=== PATIENT | male | born 1985 | race Caucasian/White ===

== ENCOUNTER 2021-11-15 06:00 | Day surgery (SDC) | payer OTHER ==
[~2021-11-15] VITALS: Ht 175.3 cm; Wt 74.8 kg
[2021-11-15] MEDS: MEPERIDINE 100 MG INJ. 100 MG/ML VIAL ONE ×2 (08:21→08:24)
[2021-11-15] MEDS: MIDAZOLAM HCL 5 MG/5 ML VIAL ONE ×3 (08:21→08:28)
[2021-11-15 14:33] VITALS: BP_SYST 109
== END 2021-11-15 09:30 | disposition home or self-care (01) ==
LOC: SMU 06:00 → SDS 06:00
PROVIDERS: ATTEND Internal Medicine Gastroenterology
DX: K52.9 Noninfective gastroenteritis and colitis, unspecified (principal); R03.0 Elevated blood-pressure reading, without diagnosis of hypertension; Z20.822 Contact with and (suspected) exposure to COVID-19
CPT/HCPCS: 36415 ×2; 45380; 87426; 88305; 99152; G0378; J2175; J2250; U0003